=== PATIENT | male | born 1995 ===

== ENCOUNTER 2023-07-13 18:33 | Emergency (ER) | payer OTHER ==
[~2023-07-13] VITALS: Ht 182.9 cm; Wt 106.6 kg
[2023-07-14] MEDS ORDERED: Ibuprofen600 MG PO (00:28)
[2023-07-14] MEDS ORDERED: HYDR1TAB94 PO (00:28)
[2023-07-14 01:00] VITALS: BP 144/80
== END 2023-07-14 01:25 | disposition home or self-care (01) ==
LOC: ER 18:33
DX: S82.001A Unspecified fracture of right patella, initial encounter for closed fracture (principal); W18.30XA Fall on same level, unspecified, initial encounter; Y99.0 Civilian activity done for income or pay
CPT/HCPCS: 27560; 73552; 73560-RT; 73700; 96374-59; 96375; 96375-59; 96376-59; 99284-25; A9270; J1170; J2405; J3010